=== PATIENT | male | born 1995 | race Caucasian/White ===

== ENCOUNTER 2016-06-21 01:21 | Emergency (ER) | payer BC, OTHER ==
[~2016-06-21] VITALS: Ht 170.2 cm; Wt 68.0 kg
[2016-06-21 01:25] VITALS: BP 120/64; PULSE 102; RESP 18; TEMP 98.1; O2SAT 100
[2016-06-21] MEDS ORDERED: SODIUM CHLORIDE 0.9% FLUSH 10 ML FLUSH IVF PRN (02:00)
[2016-06-21] MEDS ORDERED: SODIUM CHLOR 0.9% 1000 ML INJ 1,000 ML IV ONE (02:00)
[2016-06-21 02:11] LABS: AUTOMATED NEUTROPHIL # 6.3 TH/MM3 (1.8-7.7); BASOPHIL % 0.5 % (0.0-2.0); EOSINOPHIL # 0.1 TH/MM3 (0-0.4); EOSINOPHIL % 0.7 % (0.0-4.0); HEMATOCRIT 48.3 % (39.0-51.0); HEMO FLAGS DIFF FINAL; LYMPH % 24.1 % (9.0-44.0); LYMPHOCYTE # 2.2 TH/MM3 (1.0-4.8); MEAN CELL VOLUME 87.6 FL (80.0-100.0); MEAN CORPUSCULAR HGB CONC 35.4 % (32.0-36.0); MONO % 6.5 % (0.0-8.0); NEUT % 68.2 % (16.0-70.0); PLATELET COUNT 223 TH/MM3 (150-450); RED BLOOD COUNT 5.51 MIL/MM3 (4.50-5.90); WHITE BLOOD COUNT 9.2 TH/MM3 (4.0-11.0)
--- NOTE | 2016-06-21 02:11 | PD ---
HPI Chief Complaint: Alcohol/Drug Intoxication Time Seen by Provider: 01:34 Travel History International Travel<30 days: No Contact w/Intl Traveler<30days: No Traveled to known affect area: No History of Present Illness HPI Patient is a 21-year-old male who is brought to the emergency room by [facility] after friends called for help. As per EMS, patient was found face down in his vomit after drinking heavily and doing heroin tonight. Patient is arousable emergency room, denies suicidal or homicidal ideations. Patient admits to using recreational drugs fun, he was not attempting to commit suicide. Patient with no complaints at this time. [facility] Past Medical History Medical History: Denies Significant Hx Tetanus Vaccination: Unknown Influenza Vaccination: No Past Surgical History Surgical History: No Previous Surgery Social History Alcohol Use: Yes Tobacco Use: Yes Substance Use: Yes (heroin, weed, cocaine ) Allergies-Medications (Allergen,Severity, Reaction): Coded Allergies: Penicillin (Verified Allergy, Unknown, 06/21/16) Reported Meds & Prescriptions Reported Meds & Active Scripts Active No Active Prescriptions or Reported Medications Review of Systems General / Constitutional: No: Fever Eyes: No: Visual changes HENT: No: Headaches Cardiovascular: No: Chest Pain or Discomfort Respiratory: No: Shortness of Breath Gastrointestinal: No: Abdominal Pain Genitourinary: No: Dysuria Musculoskeletal: No: Pain Skin: No Rash Neurologic: No: Weakness Psychiatric: Positive: Substance Abuse, No: Depression Endocrine: No: Polydipsia Hematologic/Lymphatic: No: Easy Bruising Physical Exam Narrative GENERAL: No acute distress, nontoxic SKIN: Focused skin assessment warm/dry. HEAD: Atraumatic. Normocephalic. EYES: Pupils equal and round. No scleral icterus. No injection or drainage. ENT: No nasal bleeding or discharge. Mucous membranes pink and moist. NECK: Trachea midline. No JVD. CARDIOVASCULAR: Regular rate and rhythm. No murmur appreciated. RESPIRATORY: No accessory muscle use. Clear to auscultation. Breath sounds equal bilaterally. GASTROINTESTINAL: Abdomen soft, non-tender, nondistended. Hepatic and splenic margins not palpable. MUSCULOSKELETAL: No obvious deformities. No clubbing. No cyanosis. No edema. NEUROLOGICAL: Awake and alert. Normal speech. PSYCHIATRIC: Patient intoxicated Data Data Last Documented VS Vital Signs Date Time Temp Pulse Resp B/P Pulse Ox O2 Delivery O2 Flow Rate FiO2 06/21/16 01:25 98.1 102 18 120/64 100 Orders Complete Blood Count With Diff (06/21/16 01:53) Comprehensive Metabolic Panel (06/21/16 01:53) Iv Access Insert/Monitor (06/21/16 01:53) Sodium Chloride 0.9% Flush (Ns Flush) (06/21/16 02:00) Drug Screen, Random Urine (06/21/16 01:53) Alcohol (Ethanol) (06/21/16 01:53) Sodium Chlor 0.9% 1000 Ml Inj (Ns 1000 M (06/21/16 02:00) Lorazepam Inj (Ativan Inj) (06/21/16 02:30) Haloperidol Inj (Haldol Inj) (06/21/16 02:39) Haloperidol Inj (Haldol Inj) (06/21/16 02:45) Lorazepam Inj (Ativan Inj) (06/21/16 02:45) Ketamine Inj (Ketalar Inj) (06/21/16 03:10) Ketamine Inj (Ketalar Inj) (06/21/16 03:30) Oximetry (06/21/16 03:17) Restraints Violent (06/21/16 03:19) ^ Sitter (06/21/16 03:19) Labs Laboratory Tests Test 06/21/16 06/21/16 01:40 01:55 White Blood Count 9.2 TH/MM3 Red Blood Count 5.51 MIL/MM3 Hemoglobin 17.1 GM/DL Hematocrit 48.3 % Mean Corpuscular Volume 87.6 FL Mean Corpuscular Hemoglobin 31.0 PG Mean Corpuscular Hemoglobin 35.4 % Concent Red Cell Distribution Width 12.0 % Platelet Count 223 TH/MM3 Mean Platelet Volume 9.1 FL Neutrophils (%) (Auto) 68.2 % Lymphocytes (%) (Auto) 24.1 % Monocytes (%) (Auto) 6.5 % Eosinophils (%) (Auto) 0.7 % Basophils (%) (Auto) 0.5 % Neutrophils # (Auto) 6.3 TH/MM3 Lymphocytes # (Auto) 2.2 TH/MM3 Monocytes # (Auto) 0.6 TH/MM3 Eosinophils # (Auto) 0.1 TH/MM3 Basophils # (Auto) 0.0 TH/MM3 CBC Comment DIFF FINAL Differential Comment Sodium Level 143 MEQ/L Potassium Level 3.9 MEQ/L Chloride Level 105 MEQ/L Carbon Dioxide Level 28.7 MEQ/L Anion Gap 9 MEQ/L Blood Urea Nitrogen 8 MG/DL Creatinine 1.19 MG/DL Estimat Glomerular Filtration 76 ML/MIN Rate Random Glucose 89 MG/DL Calcium Level 8.4 MG/DL Total Bilirubin 0.3 MG/DL Aspartate Amino Transf 19 U/L (AST/SGOT) Alanine Aminotransferase 19 U/L (ALT/SGPT) Alkaline Phosphatase 81 U/L Total Protein 7.7 GM/DL Albumin 4.6 GM/DL Ethyl Alcohol Level 269 MG/DL Urine Opiates Screen NEG Urine Barbiturates Screen NEG Urine Amphetamines Screen NEG Urine Benzodiazepines Screen NEG Urine Cocaine Screen NEG Urine Cannabinoids Screen NEG MDM Medical Decision Making Medical Screen Exam Complete: Yes Emergency Medical Condition: Yes Interpretation(s) Vital Signs Date Time Temp Pulse Resp B/P Pulse Ox O2 Delivery O2 Flow Rate FiO2 06/21/16 01:25 98.1 102 18 120/64 100 Differential Diagnosis Alcohol intoxication, drug abuse Narrative Course 21-year-old male who presents to emergency room with EMS after he was found face down his vomiting, EMS reports that patient's friends tried to wake patient up and patient was not arousable. Patient was brought to the emergency room for evaluation. Patient is alert and oriented 3, he is intoxicated at this time. IVF ordered. Will continue to monitor patient CBC & BMP Diagram 06/21/16 01:40 patient intoxicated, attempting to leave ER, patient required chemical sedation as he is intoxicated and does not have a responsible adult to drive him home patient attempting to elope from ER multiple times, unable to redirect patient, patient required chemical sedation for his safety patient ran from his stretcher down the hallway to the exit - patient was restrained and brought back to his room, restraints were placed and patient was remedicated with 1ativan and 5mg of haldol patient attempting to get out of his restraints, he is thrashing in bed, ketamine 50mg ordered for sedation, 1;1 at bedside Patient sedated with 1:1 at bedside, will remove restraints Critical Care Narrative Aggregate critical care time was 30 minutes. Time to perform other separately billable procedures was not included in the critical care time. My time did not include minutes spent treating any other patients simultaneously or on activities that did not directly contribute to the patient's treatment. The services I provided to this patient were to treat and/or prevent clinically significant deterioration that could result in: , decompensation, deterioration I provided critical care services requiring my management, as noted below: Chart data review, documentation time, medication orders and management, vital sign assessments/reviewing monitor data, ordering and reviewing lab tests, ordering and interpreting/reviewing x-rays and diagnostic studies, care of the patient and discussion of the patient with the admitting physicians. Diagnosis Primary Impression: Alcohol intoxication Qualified Code: F10.120 - Alcohol intoxication, uncomplicated Patient Instructions: General Instructions Additional Instructions: Please follow up with your primary care doctor Return to ER as needed Please drink responsibility Scripts No Active Prescriptions or Reported Meds Condition: Stable Stefany Garcia DO Jun 21, 2016 02:11
[2016-06-21 02:18] LABS: AMPHETAMINE, URINE NEG (NEG); BARBITURATES, URINE NEG (NEG); COCAINE, URINE NEG (NEG)
[2016-06-21 02:22] LABS: ALKALINE PHOSPHATASE 81 U/L (45-117); TOTAL BILIRUBIN ADULT 0.3 MG/DL (0.2-1.0)
[2016-06-21 02:24] LABS: ALT (GPT) 19 U/L (12-78); ANION GAP 9 MEQ/L (5-15); AST (GOT) 19 U/L (15-37); BICARBONATE 28.7 MEQ/L (21.0-32.0); BLOOD UREA NITROGEN 8 MG/DL (7-18); CHLORIDE 105 MEQ/L (98-107); GLOMERULAR FILTRATION RATE 76 ML/MIN (>89); POTASSIUM 3.9 MEQ/L (3.5-5.1); SODIUM (NA) 143 MEQ/L (136-145)
[2016-06-21] MEDS ORDERED: LORazepam 2 MG/ML VIAL IV PUSH ONE (02:30)
[2016-06-21] MEDS ORDERED: HALOPERIDOL LACTATE 5 MG/ML AMP ONE (02:39)
[2016-06-21] MEDS ORDERED: HALOPERIDOL LACTATE 5 MG/ML AMP IM ONE (02:45)
[2016-06-21] MEDS ORDERED: LORazepam 2 MG/ML VIAL IM ONE (02:45)
[2016-06-21] MEDS ORDERED: KETAMINE HCL 500 MG/10 ML VIAL ONE (03:10)
[2016-06-21] MEDS ORDERED: KETAMINE HCL 500 MG/5 ML VIAL IM ONE (03:30)
[2016-06-21 09:32] VITALS: BP 106/56; PULSE 77; RESP 14; O2SAT 100
[2016-06-21 11:10] VITALS: BP 106/72; PULSE 82; RESP 17; O2SAT 100
== END 2016-06-21 12:10 | disposition home or self-care (01) ==
LOC: NEPC 01:21
DX: F10.129 Alcohol abuse with intoxication, unspecified (principal); F12.90 Cannabis use, unspecified, uncomplicated; F11.90 Opioid use, unspecified, uncomplicated; F14.90 Cocaine use, unspecified, uncomplicated; Z72.0 Tobacco use
CPT/HCPCS: 80053; 80307; 85025; 96372; 96374; 99291; J1630; J2060; J7030